=== PATIENT | male | born 1980 | race Caucasian/White ===

== ENCOUNTER 2021-04-24 09:05 | Emergency (ER) | payer OTHER, SELFPAY ==
--- NOTE | 2021-04-24 09:24 | ED_ITS ---
HPI - Extremity Injury (Upper) General Chief Complaint: Wound/Laceration Stated Complaint: cut right hand Time Seen by Provider: 04/24/21 09:23 Source: patient Mode of arrival: Ambulatory Limitations: no limitations History of Present Illness HPI narrative: This is a 32-year-old male comes emergency department with complaint of laceration over the dorsum of the left hand occurred about 2 hours prior. Patient states they axilla catheter hand. Patient feels some tingling in the 2nd through 4th fingers. States they have good range of motion. They state that can feel touch it just feels a little bit different. They 9 tingling in fingers 1 and 5. Patient states the knife was clean. Patient states that this is up-to-date. Denies any other injuries. Denies any medical issues. No prior surgeries. No chronic medications. No allergies to medications. Related Data Allergies Allergy/AdvReac Type Severity Reaction Status Date / Time No Known Drug Allergies Allergy Verified 04/24/21 09:32 Review of Systems Review of Systems ROS Unobtainable: All systems reviewed & are unremarkable except as noted in HPI and below Patient History Social History Smoking Status: Never smoker Exam Narrative Exam Narrative: GENERAL: Alert and oriented x three, well-nourished male in mild distress. HEENT: Head normocephalic, atraumatic, EOMI, pupils reactive, face symmetric, moist mucous membranes NECK: Supple, full range of motion CARDIOVASCULAR: Regular rate and rhythm without murmurs, rubs or gallops. EXTREMITIES: Normal range of motion, no clubbing or edema. Neurovascularly intact. Patient has a 4 cm laceration over the dorsum of the hand extending over the 2nd metacarpal region toward 4th. There is a gap. No tendons involvement is appreciated on exam. Patient has full range of motion of all fingers with flexion extension as well as abduct and adduct epps. Patient has sensation to light touch. Cap refills less than 2 seconds. NEUROLOGICAL: Cranial nerves II through XII grossly intact. Moving all extremities SKIN: Warm, dry, no petechiae, no rashes or lesions. Initial Vital Signs Initial Vital Signs: Vital Signs Temperature 98.5 F 04/24/21 09:26 Pulse Rate 68 04/24/21 09:26 Respiratory Rate 18 04/24/21 09:26 Blood Pressure 135/86 04/24/21 09:26 Pulse Oximetry 98 04/24/21 09:26 Procedures Laceration Repair Laceration 1: Site: hand Side (If applicable): right Size (cm): 4 Description: linear Depth: simple, single layer Local Anesthetic: lidocaine 1% Amount of anesthesia used (mL): 4 Pre-repair: wound explored, irrigated extensively and deep structures intact Skin layer closed with: nylon Size (cm): 4-0 Number of sutures: 8 Course Orders Ordered: Discontinued Medications Bacitracin (Bacitracin Oint 0.9 Gm Pckt) 1 applic TOP NOW ONE Stop: 04/24/21 10:33 Last Admin: 04/24/21 10:37 Dose: 1 applic Documented by: TIKI Lidocaine/Sodium Bicarbonate (Lido 1%/Sod Bicarb 8.4% (10ml) 10 Ml Syringe) 10 ml INJ NOW ONE Stop: 04/24/21 09:31 Last Admin: 04/24/21 09:45 Dose: 10 ml Documented by: MELY Vital Signs Vital signs: Vital Signs - 8 hr 04/24/21 09:26 Temperature 98.5 F Pulse Rate 68 Respiratory Rate 18 Blood Pressure 135/86 Pulse Oximetry 98 MDM - Extremity Injury (Upper) MDM Narrative Medical decision making narrative: This is a 40-year-old male who has laceration to dorsum of the hand. Patient does not have any obvious tendon involvement. There is some tingling but patient has good sensation to light touch. On full range of motion with no weakness appreciated. Patient was given splint to prevent flexion of the fingers. Laceration was repaired patient was given referral to Orthopedic surgery for evaluation. Return precautions were discussed and patient is aware that there is potential for nerve and tendon involvement although none was clearly noted today and that I would recommend a follow-up with orthopedic surgery for evaluation and repair if they feel would be warranted. Discharge Plan Departure Patient Disposition: Home Clinical Impression: Laceration of hand Instructions: DI for Laceration Repair -- Simple Activity Restrictions/Additional Instructions: With orthopedic surgery for your tingling there is potential for nerve involvement. Call to set up an appointment in the next week. In use Tylenol or ibuprofen as needed for pain. Wound Care: Keep wound(s) clean and dry. Wash daily with soap and water only. Change bandage at least once daily. Do not use over the counter products (alcohol or peroxide)on the wounds unless instructed by a physician. You may use a topical triple antibiotic ointment to the affected area. If wound condition worsens (increased/expanding redness, developing fluid blisters, or worsening pain), either contact your doctor for an urgent re- assessment , or return to the Emergency Department. Return to the Emergency Department for any new or worsening symptoms. Return to the ED, urgent care, or vist a primary care doctor for removal or suture or ernesto 7-10 days Return if fever greater than 100.4 Fahrenheit, increased swelling, increasing pain or worsening symptoms such as increased discharge or spreading redness. New weakness, numbness or loss of sensation, inability to flex or extend her fingers or move them normally or other new or concerning symptoms. Referrals: Alicia Caruso MD [Physician] -
[2021-04-24 09:26] VITALS: BP 135/86; PULSE 68; RESP 18; TEMP 36.9; O2SAT 98; BMI 23.3
[2021-04-24] MEDS: LIDO 1%/SOD BICARB 8.4% (10ML) 10 ML SYRINGE INJ (09:45)
[2021-04-24] MEDS: BACITRACIN OINT 0.9 GM PCKT 1 APPLIC TOP (10:37)
== END 2021-04-24 10:48 | disposition home or self-care (01) ==
PROVIDERS: Emergency Provider Emergency Medicine
DX: S61.412A Laceration without foreign body of left hand, initial encounter (principal); W26.0XXA Contact with knife, initial encounter
CPT/HCPCS: 12002; 29125; 99283

== ENCOUNTER 2021-05-05 19:19 | Emergency (ER) | payer OTHER, SELFPAY ==
[2021-05-05 19:29] VITALS: BP 138/71; PULSE 77; RESP 16; TEMP 36.7; O2SAT 97; BMI 23.3
--- NOTE | 2021-05-05 19:36 | ED_ITS ---
HPI - Wound/Laceration General Chief Complaint: Wound/Laceration Stated Complaint: RIGHT HAND NEEDS STICHES OUT Time Seen by Provider: 05/05/21 19:33 Source: patient Mode of arrival: Ambulatory Limitations: no limitations History of Present Illness HPI narrative: 40-year-old male with stitches placed on the dorsum of his hand on 04/24/2021 which appears healing well but does appear that it may benefit from another day or 2 of healing. There is no warmth or erythema but there is some mild swelling along the edges. There is no drainage. Patient has been wearing a splint to keep him from moving his hand regularly. Patient has no other complaints or concerns. Patient and family are both comfortable returning in 1-2 days for suture removal. Splint was replaced as it is quite dirty and given a new 1. Related Data Allergies Allergy/AdvReac Type Severity Reaction Status Date / Time No Known Drug Allergies Allergy Verified 04/24/21 09:32 Review of Systems Review of Systems ROS Unobtainable: All systems reviewed & are unremarkable except as noted in HPI and below Patient History Social History Smoking Status: Never smoker Smoking Status: Never smoker alcohol intake frequency: 0-2 drinks per day Substance Use Type: does not use Exam Narrative Exam Narrative: Patient has sutures #8 in the right hand on the dorsum. Incision appears to be healing well but there is some mild swelling and when edges are pulled does not fully gap but appears like it might. There is no warmth, there is no erythema. There is no drainage. Patient has good range of motion of all 5 fingers and is neurovascularly intact. Initial Vital Signs Initial Vital Signs: Vital Signs Temperature 98.1 F 05/05/21 19:29 Pulse Rate 77 05/05/21 19:29 Respiratory Rate 16 05/05/21 19:29 Blood Pressure 138/71 05/05/21 19:29 Pulse Oximetry 97 05/05/21 19:29 Course Vital Signs Vital signs: Vital Signs - 8 hr 05/05/21 19:29 Temperature 98.1 F Pulse Rate 77 Respiratory Rate 16 Blood Pressure 138/71 Pulse Oximetry 97 Discharge Plan Departure Patient Disposition: Home Clinical Impression: Laceration of hand Activity Restrictions/Additional Instructions: Return in 2 days for recheck and suture removal (). Your wound appears to be healing well but I feel you would likely benefit from another day or 2 of healing. Continue to use your splint. Wound Care: Keep wound(s) clean and dry. Wash daily with soap and water only. Do not use over the counter products (alcohol or peroxide)on the wounds unless instructed by a physician. If wound condition worsens (increased/expanding redness, developing fluid blisters, or worsening pain), either contact your doctor for an urgent re- assessment , or return to the Emergency Department. Return if fever greater than 100.4 Fahrenheit, increased swelling, increasing pain or worsening symptoms such as increased discharge or spreading redness.
--- NOTE | 2021-05-05 19:46 | PC.NURSE ---
sutures in place and Dr Apodaca advised to keep in 2 more days to avoid wound from opening. appears intact and no sign of infection.
== END 2021-05-05 19:47 | disposition home or self-care (01) ==
PROVIDERS: Emergency Provider Emergency Medicine
DX: Z48.00 Encounter for change or removal of nonsurgical wound dressing (principal)
CPT/HCPCS: 99281

== ENCOUNTER 2021-05-08 16:06 | Emergency (ER) | payer OTHER, SELFPAY ==
[2021-05-08 16:14] VITALS: BP 127/89; PULSE 85; RESP 12; TEMP 36.7; O2SAT 98
--- NOTE | 2021-05-08 16:35 | ED.RECABL ---
HPI - Recheck/Abnormal Lab/Rx General Chief Complaint: Recheck/Abnormal Lab/Rx Stated Complaint: suture removal Time Seen by Provider: 05/08/21 16:12 Source: patient Mode of arrival: Ambulatory Limitations: no limitations History of Present Illness HPI narrative: 40-year-old male nonsmoker returns for the 3rd visit and a wound check. He was seen originally on the for a deep, complicated laceration on the dorsum of his hand requiring multiple sutures. He had followed up on the and the sutures were not yet ready to be removed after being evaluated by the same provider who put them in. He returns today for another recheck. He denies any new symptoms, no redness, warmth or drainage. No systemic findings such as fever, chills nor nausea or vomiting. Related Data Allergies Allergy/AdvReac Type Severity Reaction Status Date / Time No Known Drug Allergies Allergy Verified 04/24/21 09:32 Review of Systems Constitutional Constitutional: Denies chills and Denies fever(s) Cardiovascular Cardiovascular: Denies chest pain Gastrointestinal Gastrointestinal: Denies abdominal pain, Denies nausea and Denies vomiting Integumentary/Breasts Skin/Breast: Reports wounds Patient History Social History Smoking Status: Never smoker Smoking Status: Never smoker alcohol intake frequency: 0-2 drinks per day Substance Use Type: does not use Exam Narrative Exam Narrative: GEN: AOx3 and in mild distress EYES: Pupils are equal, round, and reactive to light and accommodation. Extraoccular muscles are intact bilaterally. There is no subconjunctival hemorrhage or exudate. CHEST: Lungs are clear to auscultation bilaterally and free of wheezes, rales, or rhonchi. Heart rate is regular rhythm, there are no murmurs, clicks, rubs, or gallops. There is no chest wall tenderness. ABD: Abdomen is soft and nontender. There is no guarding or rebound. Bowel sounds are normal in all 4 quadrants. There is no mass or organomegaly. EXT: Full painless ROM of all extremities with no loss of sensation or strength. SKIN: Incision is clean, dry and intact, there is some subtle suggestions that all sutures are not quite ready to come out as the wound is still pulling apart a small amount, no surrounding erythema, induration or drainage. Initial Vital Signs Initial Vital Signs: Vital Signs Temperature 98.0 F 05/08/21 16:14 Pulse Rate 85 05/08/21 16:14 Respiratory Rate 12 05/08/21 16:14 Blood Pressure 127/89 05/08/21 16:14 Pulse Oximetry 98 05/08/21 16:14 Procedures Orthopedic Splinting/Casting Injury #1: Side: right Upper Extremity Injury Location: hand Upper Extremity Immobilizer: volar splint Post splinting neuro exam: intact Post splinting vascular exam: intact Placed by: Nursing Course Course Course Narrative: A few sutures removed, Steri-Strips placed, a new splint was fashioned prevent flexion over the knuckles, return precautions given and instructions to return in 3-4 days. Vital Signs Vital signs: Vital Signs - 8 hr 05/08/21 16:14 Temperature 98.0 F Pulse Rate 85 Respiratory Rate 12 Blood Pressure 127/89 Pulse Oximetry 98 Discharge Plan Departure Patient Disposition: Home Clinical Impression: Encounter for wound re-check Instructions: DI for Suture Removal Activity Restrictions/Additional Instructions: *You have been diagnosed with [wound check and suture removal. As we discussed please return in 3 or 4 days for another check and we will evaluate to see if the sutures are ready to remove entirely *What to do: *Please continue to take your regular medications as directed. [ ] New medication prescriptions sent to your pharmacy: [ ] [ ] New medication written as a paper prescription [x ] No new medications given Splint Care: Keep splint clean and dry. Elevated affected body part to decrease swelling. OK to use ice pack on the affected body part. Use for 15-20 minutes each time, for 5-6x per day. If you develop worsening pain, numbness, tingling, discoloration of the affected body part, loosen the splint by loosening the DENNISE wrap, and either see your doctor for an urgent re-assessment, or return to the Emergency Department. Return to the Emergency Department for any new or worsening symptoms.
== END 2021-05-08 17:00 | disposition home or self-care (01) ==
PROVIDERS: Emergency Provider Emergency Medicine
DX: Z48.02 Encounter for removal of sutures (principal)
CPT/HCPCS: 29125; 99282

== ENCOUNTER 2021-05-18 13:18 | Emergency (ER) | payer SELFPAY ==
[2021-05-18 13:33] VITALS: BP 143/83; PULSE 107; RESP 17; TEMP 37.2; O2SAT 96; BMI 25.0
--- NOTE | 2021-05-18 14:52 | ED_ITS ---
HPI - Wound/Laceration General Chief Complaint: Wound/Laceration Stated Complaint: Needs Stitches Removed Time Seen by Provider: 05/18/21 14:44 Source: patient Mode of arrival: Ambulatory Limitations: no limitations History of Present Illness HPI narrative: Patient here for stitches to be removed. Patient has a he has the laceration that appears to be appropriate to remove. Patient has had prolonged episode healing I have seen him twice before for additional placement and last wound check. Related Data Home Medications Medication Instructions Recorded Confirmed No Known Home Medications 05/18/21 05/18/21 Allergies Allergy/AdvReac Type Severity Reaction Status Date / Time No Known Drug Allergies Allergy Verified 05/18/21 13:37 Patient History Social History Smoking Status: Never smoker Smoking Status: Never smoker alcohol intake frequency: 0-2 drinks per day Substance Use Type: does not use Exam Narrative Exam Narrative: GENERAL: Alert and oriented x three, well-nourished male in mild distress. HEENT: Head normocephalic, atraumatic, EOMI, pupils reactive, face symmetric, moist mucous membranes NECK: Supple, full range of motion EXTREMITIES: Normal range of motion, no clubbing or edema. Neurovascularly intact. Patient has incision over the dorsum of his hand appears to be healing. Sutures removed with Steri-Strips placed over. NEUROLOGICAL: Cranial nerves II through XII grossly intact. Moving all extremities SKIN: Warm, dry, no petechiae, no rashes or lesions. Initial Vital Signs Initial Vital Signs: Vital Signs Temperature 98.9 F 05/18/21 13:33 Pulse Rate 107 H 05/18/21 13:33 Respiratory Rate 17 05/18/21 13:33 Blood Pressure 143/83 H 05/18/21 13:33 Pulse Oximetry 96 05/18/21 13:33 Course Vital Signs Vital signs: Vital Signs - 8 hr 05/18/21 13:33 Temperature 98.9 F Pulse Rate 107 H Respiratory Rate 17 Blood Pressure 143/83 H Pulse Oximetry 96 Discharge Plan Departure Patient Disposition: Home Clinical Impression: Encounter for removal of sutures Activity Restrictions/Additional Instructions: Wound Care: Keep wound(s) clean and dry. Wash daily with soap and water only. Do not use over the counter products (alcohol or peroxide)on the wounds unless instructed by a physician. If wound condition worsens (increased/expanding redness, developing fluid blisters, or worsening pain), either contact your doctor for an urgent re- assessment , or return to the Emergency Department. Return to the Emergency Department for any new or worsening symptoms. Prescriptions: No Action No Known Home Medications RF: 0
--- NOTE | 2021-05-18 14:55 | PC.NURSE ---
Per Dr. Apodaca's request, 4 sutures removed using suture removal kit. Steri strips applied to ensure continued closure of wound.
== END 2021-05-18 14:56 | disposition home or self-care (01) ==
PROVIDERS: Emergency Provider Emergency Medicine
DX: Z48.02 Encounter for removal of sutures (principal)
CPT/HCPCS: 99281